=== PATIENT | male | born 1955 | race Caucasian/White ===

== ENCOUNTER 2017-11-22 11:26 | Day surgery (SDC) | payer OTHER ==
[2017-11-22] MEDS ORDERED: LIDOCAINE 100 MG SYRINGE (12:49)
[2017-11-22] MEDS ORDERED: PROPOFOL 20 ML (12:49)
[2017-11-22] MEDS ORDERED: FENTAnyl 50 MCG/ML VIAL (12:49)
== END 2017-11-22 13:50 | disposition home or self-care (01) ==
LOC: GIL 11:26
DX: K29.70 Gastritis, unspecified, without bleeding (principal); I10 Essential (primary) hypertension; E78.5 Hyperlipidemia, unspecified
CPT/HCPCS: 43239; 88305